=== PATIENT | female | born 1950 | race Caucasian/White ===

== ENCOUNTER 2023-11-25 11:48 | Emergency (ER) | payer MEDICARE, BC ==
[2023-11-25] MEDS ORDERED: Sodium Chloride 0.9% 10 ML Syringe FLUSH PRN (12:47)
[2023-11-25 13:12] LABS: BLOOD UREA NITROGEN,BUN 18 mg/dL (7-18); BUN/CREATININE RATIO 22.5 (9-20); CALCIUM 9.2 mg/dL (8.6-10.2); CARBON DIOXIDE,CO2 30 mmol/L (21-32); CHLORIDE,CL 104 mmol/L (100-110); CREATININE 0.8 mg/dL (0.55-1.02); ESTIMATED GFR 79 mL/min (>60); GLUCOSE RANDOM 103 mg/dL (80-116); POTASSIUM,K 4.2 mmol/L (3.5-5.3); SODIUM,NA 138 mmol/L (135-145)
[2023-11-25] MEDS ORDERED: Sodium Chloride 0.9% 1,000 ML IV SCH (13:15)
[2023-11-25] MEDS ORDERED: Iopamidol 755 Mg/ML 100 ML Bottle IV SCH (15:15)
== END 2023-11-25 15:58 | disposition home or self-care (01) ==
LOC: FB.ED 11:48
DX: I65.22 Occlusion and stenosis of left carotid artery (principal)
CPT/HCPCS: 36415; 70498; 80048; 99283; 99284; J7030; Q9967

== ENCOUNTER 2023-12-10 07:00 | Day surgery (SDC) | payer MEDICARE, BC ==
[~2023-12-10 07:00] MED LIST: Sodium Chloride 0.9% 10 ML Syringe FLUSH PRN
[2023-12-10] MEDS ORDERED: Propofol 200 MG/20 ML SDV IV ONE (07:01)
[2023-12-10] MEDS ORDERED: Lidocaine 2% 100 MG/5 ML Syringe IVPUSH ONE (07:01)
[2023-12-10] MEDS: Lactated Ringers 1,000 ML IV SCH (08:15)
[2023-12-10] MEDS: Simethicone Drops 40 MG/0.6 ML 30 ML Bottle ONE (08:20)
== END 2023-12-10 09:54 | disposition home or self-care (01) ==
LOC: FB.SDS 07:00
PROVIDERS: ATTEND Surgery
DX: Z12.11 Encounter for screening for malignant neoplasm of colon (principal); R09.89 Other specified symptoms and signs involving the circulatory and respiratory systems; Z79.82 Long term (current) use of aspirin; Z79.899 Other long term (current) drug therapy
CPT/HCPCS: A9270-GY; J2704; J7120